=== PATIENT | female | born 1975 | race American Indian/Alaskan Native ===

== ENCOUNTER 2018-02-10 19:25 | Emergency (ER) | payer BC ==
[2018-02-10 19:33] VITALS: BMI 40.7
[2018-02-10 19:37] VITALS: RESP 18; TEMP 98.4; O2SAT 98
--- NOTE | 2018-02-10 19:59 | ED PDOC ---
Arrival/HPI - General Chief Complaint: Back Pain Time Seen by Provider: 02/10/18 19:39 Historian: Patient - History of Present Illness Narrative History of Present Illness (Text): 02/10/18 19:56 Patient is a 42 year old female whose past medical history includes hypertension , and renal stones, who presents to the Emergency department complaining of left flank discomfort. Patient reports that her pain has been intermittent over the past couple of weeks, and denies any associated nausea or vomiting. Patient is unsure if her pain is possibly musculoskeletal in nature. She denies any severe symptoms. Patient denies any abdominal pain, urinary complaints, history of trauma, or any other complaints. Time/Duration: > week Symptom Onset: Sudden Symptom Course: Intermittent Context: Home Past Medical History - Provider Review Nursing Documentation Reviewed: Yes - Infectious Disease Hx of Infectious Diseases: None - Tetanus Immunization Tetanus Immunization: Unknown - Cardiac Hx Cardiac Disorders: Yes Hx Hypertension: Yes - Pulmonary Hx Respiratory Disorders: No - Neurological Hx Neurological Disorder: No - HEENT Hx HEENT Disorder: No - Renal Hx Kidney Stones: Yes - Endocrine/Metabolic Hx Endocrine Disorders: No - Hematological/Oncological Hx Blood Disorders: No - Integumentary Hx Dermatological Disorder: No - Musculoskeletal/Rheumatological Hx Musculoskeletal Disorders: No - Gastrointestinal Hx Gastrointestinal Disorders: No - Genitourinary/Gynecological Hx Genitourinary Disorders: No - Psychiatric Hx Psychophysiologic Disorder: No Hx Depression: No Hx Emotional Abuse: No Hx Physical Abuse: No Hx Substance Use: No - Past Surgical History Past Surgical History: No Previous - Surgical History Other/Comment: lithotripsy. nasal polyp sx - Anesthesia Hx Anesthesia: Yes Hx Anesthesia Reactions: No Hx Malignant Hyperthermia: No - Suicidal Assessment Feels Threatened In Home Enviroment: No Family/Social History - Physician Review Nursing Documentation Reviewed: Yes Family/Social History: No Known Family HX Smoking Status: Never Smoked Hx Alcohol Use: Yes Hx Substance Use: No Hx Substance Use Treatment: No Allergies/Home Meds Allergies/Adverse Reactions: Allergies No Known Allergies Allergy (Verified 07/25/17 09:07) Home Medications: Home Meds Medication Instructions Recorded Confirmed Hydrochlorothiazide [Microzide] 1 cap PO DAILY 02/10/18 02/10/18 Review of Systems - Physician Review All systems were reviewed & negative as marked: Yes - Review of Systems Gastrointestinal: absent: Abdominal Pain, Nausea, Vomiting Genitourinary Female: absent: Urine Output Changes Musculoskeletal: Back Pain (left flank) Physical Exam Vital Signs Reviewed: Yes Vital Signs Temp Pulse Resp BP Pulse Ox 02/10/18 21:39 65 18 158/82 H 98 02/10/18 20:39 68 18 162/94 H 98 02/10/18 19:37 98.4 F 73 18 167/101 H 98 Temperature: Afebrile Blood Pressure: Hypertensive Pulse: Regular Respiratory Rate: Normal Appearance: Positive for: Well-Appearing Mental Status: Positive for: Alert and Oriented X 3 - Systems Exam Head: Present: Atraumatic, Normocephalic Pupils: Present: PERRL Extroacular Muscles: Present: EOMI Conjunctiva: Present: Normal Mouth: Present: Moist Mucous Membranes Neck: Present: Normal Range of Motion Respiratory/Chest: Present: Clear to Auscultation, Good Air Exchange. No: Respiratory Distress, Accessory Muscle Use Cardiovascular: Present: Regular Rate and Rhythm, Normal S1, S2. No: Murmurs Abdomen: No: Tenderness, Distention, Peritoneal Signs Back: Present: Normal Inspection. No: CVA Tenderness, Other (Dorsal spinal tenderness) Upper Extremity: Present: Normal Inspection. No: Cyanosis, Edema Lower Extremity: Present: Normal Inspection. No: Edema Neurological: Present: GCS=15, CN II-XII Intact, Speech Normal Skin: Present: Warm, Dry, Normal Color. No: Rashes Psychiatric: Present: Alert, Oriented x 3, Normal Insight, Normal Concentration Medical Decision Making ED Course and Treatment: 02/10/18 20:01 Impression: Patient is a 42 year old female who presents to the Emergency department complaining of intermittent left flank pain, which started a few weeks ago. Differential Diagnosis included but are not limited to: Renal colic vs. musculoskeletal strain vs. UTI. Plan: -- Abdominal and Pelvic CT without PO or IV contrast -- Labs -- Blood work -- IV fluids -- Toradol -- Urinalysis -- Reassess and disposition Prior Visits: Notes and results from previous visits were reviewed. Progress Notes: 02/10/18 21:20 CT Abdomen and Pelvis shows: Lower thorax: No acute findings. ABDOMEN: Liver: Normal. No mass. Gallbladder and bile ducts: Normal. No calcified stones. No ductal dilation. Pancreas: Normal. No ductal dilation. Spleen: Normal. No splenomegaly. Adrenals: Normal. No mass. Kidneys and ureters: Numerous nonobstructing calcifications of the right renal pelvis present without obstruction. Punctate nonobstructing calcification in the left kidney present as well. Stomach and bowel: Thickening of the wall of the stomach probably due to incomplete distention of the stomach. Appendix: No evidence of appendicitis. PELVIS: Bladder: Unremarkable as visualized. Reproductive: Hypodensity in the left lower pelvic region nonspecific could represent cyst or follicle. ABDOMEN and PELVIS: Intraperitoneal space: Trace fluid in the pelvis present. Bones/joints: Degenerative changes of the bones present. Soft tissues: Fat-containing periumbilical hernia present. Vasculature: Normal. No abdominal aortic aneurysm. Lymph nodes: Scattered mesenteric and right lower quadrant lymph nodes present,. IMPRESSION: 1. Numerous nonobstructing calcifications of the right renal pelvis present without obstruction. 2. Fat-containing periumbilical hernia present. 3. Trace fluid in the pelvis present. 02/10/18 22:05 On reevaluation the patient feels better and is in no acute distress. I have discussed the results and plan with the patient, who expresses understanding. Patient given the opportunity to ask question, all questions were answered and there is agreement with the plan to discharge the patient home with prescription. Patient is stable for discharge. Patient was instructed to follow up with physician/urology/clinic in 1-2 days or return if symptoms persist/worsen or new concerning symptoms arise. - Lab Interpretations Lab Results: 02/10/18 20:30 02/10/18 20:30 Lab Results 02/10/18 20:32: Urine Color Yellow, Urine Appearance Clear, Urine pH 7.0, Ur Specific [place] 1.015, Urine Protein 100 H, Urine Glucose (UA) Negative, Urine Ketones Negative, Urine Blood Moderate H, Urine Nitrate Negative, Urine Bilirubin Negative, Urine Urobilinogen 0.2, Ur Leukocyte Esterase Negative, Urine RBC 20 - 25, Urine WBC 1 - 3, Ur Epithelial Cells 4 - 5, Urine Bacteria Many, Urine HCG, Qual Negative 02/10/18 20:30: WBC 11.2 H, RBC 4.76, Hgb 10.6 L, Hct 33.6 L, MCV 70.6 L, MCH 22.3 L, MCHC 31.5, RDW 16.0 H, Plt Count 353, MPV 10.6 02/10/18 20:30: Sodium 145, Potassium 3.5 L, Chloride 103, Carbon Dioxide 27, Anion Gap 18, BUN 18, Creatinine 0.8, Est GFR ( Amer) > 60, Est GFR (Non- Af Amer) > 60, Random Glucose 92, Calcium 9.1, Total Bilirubin 0.3, AST 36, ALT 20, Alkaline Phosphatase 81, Total Protein 9.2 H, Albumin 4.5, Globulin 4.7, Albumin/Globulin Ratio 1.0 L I have reviewed the lab results: Yes - RAD Interpretation Radiology Orders: 02/10/18 19:58 ABD & PELVIS W/O PO OR IV CONT [CT] Stat Public Safety Director: Radiologist - Medication Orders Current Medication Orders: Sodium Chloride (Sodium Chloride 0.9%) 1,000 mls @ 100 mls/hr IV .Q10H JOON Last Admin: 02/10/18 20:11 Dose: 100 mls/hr eMAR Start Stop Document 02/10/18 20:11 YISSEL (Rec: 02/10/18 20:12 YISSEL [id number]) Intravenous Solution Start Date 02/10/18 Start Time 20:12 Discontinued Medications Ketorolac Tromethamine (Toradol) 30 mg IVP ONCE ONE Stop: 02/10/18 19:59 Last Admin: 02/10/18 20:12 Dose: 30 mg MAR Pain Assessment Document 02/10/18 20:12 YISSEL (Rec: 02/10/18 20:12 YISSEL [id number]) Pain Reassessment Is this a pain reassessment? Yes Presence of Pain Presence of Pain Yes Location Left, Right or Bilateral Left Upper or Lower Lower Pain Location Body Site Back Description Description Sharp Intensity of Pain at present 8 IVP Administration Document 02/10/18 20:12 YISSEL (Rec: 02/10/18 20:12 YISSEL [id number]) Charges for Administration # of IVP Administrations 1 - Scribe Statement The provider has reviewed the documentation as recorded by the David Olivares Provider Scribe Attestation: All medical record entries made by the Scribe were at my direction and personally dictated by me. I have reviewed the chart and agree that the record accurately reflects my personal performance of the history, physical exam, medical decision making, and the department course for this patient. I have also personally directed, reviewed, and agree with the discharge instructions and disposition. Disposition/Present on Arrival - Present on Arrival Any Indicators Present on Arrival: No History of DVT/PE: No History of Uncontrolled Diabetes: No Urinary Catheter: No History of Decub. Ulcer: No History Surgical Site Infection Following: None - Disposition Have Diagnosis and Disposition been Completed?: Yes Diagnosis: Renal colic Disposition: HOME/ ROUTINE Disposition Time: 22:06 Patient Plan: Discharge Patient Problems: Current Active Problems Problem Status Onset Renal colic Acute Condition: GOOD Discharge Instructions (ExitCare): Renal Colic (DC) Additional Instructions: Drink plenty of liquids daily/take meds as prescribed/follow up with your doctor this week Prescriptions: Naproxen [Naprosyn] 500 mg PO BID PRN #14 tab PRN Reason: Pain Referrals: Loc Mckeon MD [Primary Care Provider] - Follow up with primary Royal Brown MD [Staff Provider] - Follow up with primary Forms: M-DAQ (Polish)
[2018-02-10] MEDS ORDERED: Sodium Chloride 0.9% 1,000 ML IV SCH (20:00)
[2018-02-10 20:43] LABS: URINE BILIRUBIN NEGATIVE (NEGATIVE); URINE BLOOD MODERATE (NEGATIVE); URINE GLUCOSE (UA) NEGATIVE (NEGATIVE); URINE LEUKOCYTE ESTERASE NEGATIVE Leu/uL (NEGATIVE); URINE PROTEIN 100 mg/dL (<30 mg/dL); URINE UROBILINOGEN 0.2 E.U./dL (<1 E.U./dL)
[2018-02-10 20:44] LABS: URINE COLOR YELLOW (YELLOW)
[2018-02-10 20:45] LABS: HCG,QUALITATIVE URINE NEGATIVE (NEGATIVE); URINE APPEARANCE CLEAR (CLEAR)
[2018-02-10 20:48] LABS: URINE BACTERIA MANY (NEG); URINE RBC 20 - 25 /hpf (0-2)
[2018-02-10 21:05] LABS: HEMOGLOBIN 10.6 g/dL (12.0-16.0); MEAN CELL VOLUME 70.6 fl (80.0-105.0); MEAN CORPUSCULAR HEMOGLOBIN 22.3 pg (25.0-35.0); MEAN CORPUSCULAR HGB CONC 31.5 g/dl (31.0-37.0); MEAN PLATELET VOLUME 10.6 fl (7.0-11.0); RBC 4.76 10^6/uL (3.5-6.1); WHITE BLOOD COUNT 11.2 10^3/ul (4.5-11.0)
[2018-02-10 21:16] LABS: ALBUMIN 4.5 g/dL (3.0-4.8); ALT/SGPT 20 U/L (7-56); AST/SGOT 36 U/L (14-36); BLOOD UREA NITROGEN 18 mg/dL (7-21); CALCIUM 9.1 mg/dL (8.4-10.5); GFR NON-AFRICAN AMERICAN > 60
[2018-02-10 21:39] VITALS: BP 158/82; PULSE 65
--- NOTE | 2018-02-11 08:15 | CT ---
Date of service: 02/10/2018 PROCEDURE: CT Abdomen and Pelvis without intravenous contrast HISTORY: left flank pain COMPARISON: None. TECHNIQUE: Technique. Contrast dose: Radiation dose: Total exam DLP = mGy-cm. This CT exam was performed using one or more of the following dose reduction techniques: Automated exposure control, adjustment of the mA and/or kV according to patient size, and/or use of iterative reconstruction technique. FINDINGS: LOWER THORAX: Unremarkable. LIVER: Unremarkable. No gross lesion or ductal dilatation. GALLBLADDER AND BILE DUCTS: Unremarkable. PANCREAS: Unremarkable. No gross lesion or ductal dilatation. SPLEEN: Unremarkable. ADRENALS: Unremarkable. No mass. KIDNEYS AND URETERS: There are a few punctate intrarenal calculi identified at the right kidney. No obstructive uropathy bilaterally. Ureters appear normal in caliber throughout in the urinary bladder is unremarkable as well. No significant perinephric reaction identified in the interval. Prior intrarenal calculi at the left kidney are not identified currently. VASCULATURE: Unremarkable. No aortic aneurysm. BOWEL: Limited sigmoid diverticulosis, nonacute. No obstruction. No gross mural thickening. APPENDIX: Unremarkable. Normal appendix. PERITONEUM: There is a small umbilical hernia containing only fat. No free fluid. No free air. LYMPH NODES: Unremarkable. No enlarged lymph nodes. BLADDER: Unremarkable. REPRODUCTIVE: Unremarkable. BONES: No acute fracture. OTHER FINDINGS: None. IMPRESSION: No obstructive uropathy bilaterally or significant interval change other than the lack of intrarenal calculi left kidney in the interval. In a few intrarenal calculi remain at the right kidney which are nonobstructive. Unremarkable urinary bladder. Concordant preliminary report from [facility], 02/10/2018.
== END 2018-02-10 22:15 | disposition home or self-care (01) ==
LOC: ED 19:25
DX: N23 Unspecified renal colic (principal); I10 Essential (primary) hypertension
CPT/HCPCS: 74176; 80053; 81001; 84703; 85027; 96374; 99284; J1885; J7030

== ENCOUNTER 2018-07-05 22:16 | Emergency (ER) | payer BC ==
[2018-07-05 22:16] VITALS: BMI 40.7
[2018-07-05 22:29] VITALS: BP 144/87; PULSE 70; RESP 18; TEMP 98.5
--- NOTE | 2018-07-05 22:52 | ED PDOC ---
Arrival/HPI - General Chief Complaint: Headache Time Seen by Provider: 07/05/18 22:43 Historian: Patient - History of Present Illness Narrative History of Present Illness (Text): 07/05/18 22:52 Rosemary Hernandez is a 42 year old female, whose past medical history includes hypertension, who presents to the Emergency department complaining of headache. Patient states she has been experiencing intermittent left-sided headache for the past week with associated left ear pain. Patient notes she regularly uses Q- tips. Patient denies any fever, chills, chest pain, shortness of breath, nausea, vomiting, diarrhea, urinary symptoms, back pain, neck pain, dizziness, or any other complaints. Symptom Onset: Gradual Symptom Course: Unchanged Activities at Onset: Light Context: Home Past Medical History - Provider Review Nursing Documentation Reviewed: Yes - Infectious Disease Hx of Infectious Diseases: None - Tetanus Immunization Tetanus Immunization: Unknown - Reproductive Menopause: No - Cardiac Hx Cardiac Disorders: Yes Hx Hypertension: Yes - Pulmonary Hx Respiratory Disorders: No - Neurological Hx Neurological Disorder: No - HEENT Hx HEENT Disorder: No - Renal Hx Kidney Stones: Yes - Endocrine/Metabolic Hx Endocrine Disorders: No - Hematological/Oncological Hx Blood Disorders: No - Integumentary Hx Dermatological Disorder: No - Musculoskeletal/Rheumatological Hx Musculoskeletal Disorders: No - Gastrointestinal Hx Gastrointestinal Disorders: No - Genitourinary/Gynecological Hx Genitourinary Disorders: No - Psychiatric Hx Psychophysiologic Disorder: No Hx Depression: No Hx Emotional Abuse: No Hx Physical Abuse: No Hx Substance Use: No - Past Surgical History Past Surgical History: No Previous - Surgical History Other/Comment: lithotripsy. nasal polyp sx - Anesthesia Hx Anesthesia: Yes Hx Anesthesia Reactions: No Hx Malignant Hyperthermia: No - Suicidal Assessment Feels Threatened In Home Enviroment: No Family/Social History - Physician Review Nursing Documentation Reviewed: Yes Family/Social History: Unknown Family HX Smoking Status: Never Smoked Hx Alcohol Use: Yes Hx Substance Use: No Hx Substance Use Treatment: No Allergies/Home Meds Allergies/Adverse Reactions: Allergies No Known Allergies Allergy (Verified 07/05/18 22:25) Home Medications: Home Meds Medication Instructions Recorded Confirmed RX: Hydrochlorothiazide [Microzide] 1 cap PO DAILY 02/10/18 07/05/18 Review of Systems - Physician Review All systems were reviewed & negative as marked: Yes - Review of Systems Constitutional: Normal. absent: Fevers Eyes: Normal ENT: Other (+left ear pain) Respiratory: Normal. absent: SOB, Cough Cardiovascular: Normal. absent: Chest Pain Gastrointestinal: Normal. absent: Abdominal Pain, Diarrhea, Nausea, Vomiting Genitourinary Female: Normal. absent: Dysuria, Frequency, Hematuria, Urine Output Changes Musculoskeletal: Normal. absent: Back Pain, Neck Pain Skin: Normal. absent: Rash Neurological: Headache. absent: Dizziness Endocrine: Normal Hemo/Lymphatic: Normal Psychiatric: Normal Physical Exam Vital Signs Reviewed: Yes Vital Signs Temp Pulse Resp BP Pulse Ox 07/05/18 22:26 98.5 F 70 18 144/87 96 Temperature: Afebrile Blood Pressure: Normal Pulse: Regular Respiratory Rate: Normal Appearance: Positive for: Well-Appearing, Non-Toxic, Comfortable Pain Distress: None Mental Status: Positive for: Alert and Oriented X 3 - Systems Exam Head: Present: Atraumatic, Normocephalic Pupils: Present: PERRL Extroacular Muscles: Present: EOMI Conjunctiva: Present: Normal Ears: Present: NORMAL TM, Other (Abrasion to left external ear canal/no tenderness on left ear auricle palpation/no post auricular/mastoid tenderness) Mouth: Present: Moist Mucous Membranes Neck: Present: Normal Range of Motion Respiratory/Chest: Present: Clear to Auscultation, Good Air Exchange. No: Respiratory Distress, Accessory Muscle Use Cardiovascular: Present: Regular Rate and Rhythm, Normal S1, S2. No: Murmurs Abdomen: No: Tenderness, Distention, Peritoneal Signs Back: Present: Normal Inspection Upper Extremity: Present: Normal Inspection. No: Cyanosis, Edema Lower Extremity: Present: Normal Inspection. No: Edema Neurological: Present: GCS=15, CN II-XII Intact, Speech Normal Skin: Present: Warm, Dry, Normal Color. No: Rashes Psychiatric: Present: Alert, Oriented x 3, Normal Insight, Normal Concentration Medical Decision Making ED Course and Treatment: 07/05/18 22:52 Impression: 42 year old female complaining of left-sided headache with associated left ear pain. Plan: -- CT Head w/o contrast -- Tylenol -- Reassess and disposition Progress Notes: 07/06/18 00:41 CT Head: Normal size of the ventricles and extra-axial spaces for the patient's age. Normal white matter tracts of the supratentorial brain. Normal basal ganglia and thalami. Normal brainstem. Normal cerebellum. There is no demonstrated extra-axial, intraparenchymal, or intraventricular hemorrhage. There are no findings of an acute ischemic infarction. Normal calvarium. There is no demonstrated fracture. Normal soft tissue structures. Mild right mastoid effusion. Moderate chronic mucosal inflammatory changes of the right frontal sinus and right ethmoid air cells. Normal remaining visualized paranasal sinuses. IMPRESSION: Normal unenhanced CT scan of the brain. Chronic sinusitis. Mild right mastoid effusion. Electronically signed on Jul 06, 2018 12:30:13 AM EST by: Malik French M.D., Certified by ABR, MSK, Neuroradiology - RAD Interpretation Piggyback Clerk: Radiologist - Scribe Statement The provider has reviewed the documentation as recorded by the Mackibadele Malone Provider Scribe Attestation: All medical record entries made by the Scribe were at my direction and personally dictated by me. I have reviewed the chart and agree that the record accurately reflects my personal performance of the history, physical exam, medical decision making, and the department course for this patient. I have also personally directed, reviewed, and agree with the discharge instructions and disposition. Disposition/Present on Arrival - Present on Arrival Any Indicators Present on Arrival: No History of DVT/PE: No History of Uncontrolled Diabetes: No Urinary Catheter: No History of Decub. Ulcer: No History Surgical Site Infection Following: None - Disposition Have Diagnosis and Disposition been Completed?: Yes Diagnosis: Sinusitis, Headache Disposition: HOME/ ROUTINE Disposition Time: 00:56 Patient Plan: Discharge Condition: GOOD Discharge Instructions (ExitCare): Sinusitis, Adult (DC), Sinus Headache (DC) Additional Instructions: Take meds as prescribed/follow up with your doctor this week Prescriptions: Amoxicillin/Clavulanate [Augmentin 875 MG-125 MG] 1 tab PO BID #20 tab Referrals: Loc Mckeon MD [Primary Care Provider] - Follow up with primary Forms: [employer] (Kiswahili)
[2018-07-06] MEDS ORDERED: Amoxicillin-Clav 875-125 mg Tab PO STA (00:55)
[2018-07-06 01:44] VITALS: O2SAT 99
--- NOTE | 2018-07-06 07:55 | CT ---
Date of service: 07/05/2018 PROCEDURE: CT HEAD WITHOUT CONTRAST. HISTORY: headache COMPARISON: None available. TECHNIQUE: Axial computed tomography images were obtained through the head/brain without intravenous contrast. Radiation dose: Total exam DLP = 823.48 mGy-cm. This CT exam was performed using one or more of the following dose reduction techniques: Automated exposure control, adjustment of the mA and/or kV according to patient size, and/or use of iterative reconstruction technique. FINDINGS: HEMORRHAGE: No intracranial hemorrhage. BRAIN: No mass effect or edema. No atrophy or chronic microvascular ischemic changes. VENTRICLES: Unremarkable. No hydrocephalus. CALVARIUM: Unremarkable. PARANASAL SINUSES: Unremarkable as visualized. No significant inflammatory changes. MASTOID AIR CELLS: Unremarkable as visualized. No inflammatory changes. OTHER FINDINGS: The report concurs with the preliminary [facility] report IMPRESSION: No acute intracranial findings
== END 2018-07-06 01:43 | disposition home or self-care (01) ==
LOC: ED 22:16
DX: J32.9 Chronic sinusitis, unspecified (principal); R51 Headache; I10 Essential (primary) hypertension

== ENCOUNTER 2018-09-11 11:31 | Outpatient (CLI) | payer BC | END 2018-09-11 11:32 | disposition home or self-care (01) | LOC: RAD 11:31 ==